=== PATIENT | female | born 1980 | race African-American/Black ===

== ENCOUNTER 2017-07-13 08:05 | Emergency (ER) | payer MEDICAID, OTHER ==
[~2017-07-13 08:05] MED LIST: PENI500T PO; TRAM50TA PO
--- NOTE | 2017-07-13 14:49 | RADRPT ---
EXAM DATE/TIME: 07/13/2017 08:55 [place] COMPARISON: No previous studies available for comparison. INDICATIONS : Fall. Left ankle pain. MEDICAL HISTORY : None. SURGICAL HISTORY : None. ENCOUNTER: Initial ACUITY: 1 day PAIN SCORE: 7/10 LOCATION: Left lateral FINDINGS: Two view exam was performed of the left ankle. The bony structures are in normal alignment. No evid ence of fracture, dislocation, or soft tissue swelling. No radiopaque foreign bodies are seen. Bony mineralization is normal. CONCLUSION: No acute fracture. Bryce Lehman MD on July 13, 2017 at 9:03 Board Certified Radiologist. This report was verified electronically.
--- NOTE | 2017-07-13 17:56 | EP ---
cc: MIRTA PATRICK MD The patient is an 11 week female patient presenting to the emergency room after a slip and fall accident where she landed on her hands and knees and is complaining of lower back discomfort and left ankle pain which she currently measures at a 5/10. It hurts with ambulating. She denies any incontinence, fevers, head injury, loss of consciousness, or any other issues. PHYSICAL EXAMINATION: GENERAL: On physical exam, the patient is a well-appearing female who is in no significant distress. She is awake and oriented x3. HEAD, EYES, EARS, NOSE, THROAT: Normocephalic and atraumatic. NECK: The neck is supple. CHEST: She is clear to auscultation bilaterally with no wheezes, crackles or rhonchi. There is no tenderness on palpation of the chest wall. ABDOMEN: Nontender at palpation with no signs of significant trauma or organomegaly. EXTREMITIES: There is no tenderness to palpation except for mild tenderness around the left ankle area which is generalized with no bony tenderness. NEUROLOGICAL EXAMINATION: The patient is awake, alert and oriented x3. ASSESSMENT AND PLAN: She appears to have an underlying ankle injury/back strain--rule out fractures of the ankle. The back exam is fairly unremarkable and I do not suspect an acute bony injury. Her ankle was x-rayed and showed no signs of fracture. At this point, it appears that she may have some underlying sprain and was given PADMINI wrap and crutches. The patient was asked to stay off the ankle for the next week and to ice and elevate the ankle when sitting down or lying down. She should follow up with her primary care physician should any of her pain become worse or if she has any symptoms. Tylenol and Flexeril as needed for pain. Mirta KENNY/JUAN /12:14 PM /5:46 PM
[2017-08-14] MEDS ORDERED: PREN1CAP7 PO (16:16)
== END 2017-07-13 09:30 | disposition home or self-care (01) ==
LOC: PHED 08:26
DX: M25.572 Pain in left ankle and joints of left foot (principal); M54.5 Low back pain; O26.891 Other specified pregnancy related conditions, first trimester; W01.0XXA Fall on same level from slipping, tripping and stumbling without subsequent striking against object, initial encounter; Z3A.11 11 weeks gestation of pregnancy
CPT/HCPCS: 73600; 99283

== ENCOUNTER → 2017-08-25 | Outpatient (CLI) | payer OTHER ==
[~2017-08-25] MED LIST changes: -PENI500T PO; +PREN1CAP7 PO; -TRAM50TA PO
== END ==
LOC: HPND 11:02
PROVIDERS: ATTEND Obstetrics & Gynecology
DX: O09.522 Supervision of elderly multigravida, second trimester (principal)
CPT/HCPCS: 76805

== ENCOUNTER → 2017-09-24 | Outpatient (CLI) | payer OTHER ==
[~2017-09-24] MED LIST changes: +CITA10TA4 PO; +CITA20TA4 PO
== END ==
LOC: HPND 08:21
PROVIDERS: ATTEND Obstetrics & Gynecology
DX: O09.522 Supervision of elderly multigravida, second trimester (principal)
CPT/HCPCS: 76811; 76817

== ENCOUNTER 2017-09-25 10:15 | Inpatient (IN) | payer OTHER ==
[2017-09-25] VITALS (25 sets, daily range): BP systolic 115–118; BP diastolic 59–67; PULSE 74–96; RESP 18; TEMP 98; O2SAT 99
[~2017-09-25] VITALS: Ht 170.2 cm; Wt 71.1 kg
[2017-09-25] MEDS ORDERED: ceFAZolin 2 GM PREMIX 50 ML ONE ×2 (10:55)
[2017-09-25] MEDS: LACTATED RINGER'S 1000 ML IV PRN ×4 (11:00→19:50)
[2017-09-25] MEDS ORDERED: METOPROLOL TARTRATE 25 MG TAB PO PRN ×2 (11:30)
[2017-09-25] MEDS ORDERED: ceFAZolin 2 GM PREMIX 50 ML IV SCH ×2 (11:30)
[2017-09-25] MEDS ORDERED: SODIUM CHLORID 0.9% 500 ML IV PRN ×2 (11:30)
[2017-09-25] MEDS ORDERED: INSULIN HUMAN REGULAR 1,000 UNITS/10 ML VIAL SQ PRN ×2 (11:30)
[2017-09-25] MEDS ORDERED: POVIDONE IODINE 5% (ANTISEPSIS KIT) 4 APPLICATIONS EACH NARE PRN ×2 (11:30)
[2017-09-25] MEDS ORDERED: CHLORHEXIDINE GLUCONATE 2 % 1 PACK (2 CLOTHS) TOPICAL PRN ×2 (11:30)
[2017-09-25] MEDS ORDERED: SUCCINYLCHOLINE CHLORIDE 100 MG/5 ML SYRINGE IV PUSH ONE ×2 (12:00)
[2017-09-25] MEDS ORDERED: LIDOCAINE HCL 1% PF 5 ML AMPULE OTHER ONE ×2 (12:00)
[2017-09-25] MEDS ORDERED: PROPOFOL 200 MG/20 ML AMP IV ONE ×2 (12:00)
--- NOTE | 2017-09-25 12:00 | MH ---
cc: ERICKA RENTERIA MD DATE OF ADMISSION: 09/25/2017 REASON FOR ADMISSION Cervical cerclage. HISTORY OF PRESENT ILLNESS This patient is well-known to our practice. She was recently seen by Maternal Medicine at which time she was diagnosed with cervical incompetence. She is approximately 20 weeks gestation. I discussed with Maternal Medicine the risks and benefits of a rescue cerclage at this point. Because the patient has some cervix left I advised the patient that I will go ahead with a rescue cerclage. The benefits of cerclage were discussed at length in a patient who is 21 weeks. The success rate is not great although the benefits would be potentially life-saving for the . The patient is a 3, para 2, -[place] who originally saw us at approximately ___ weeks gestation. It should be noted that the patient has a severe anxiety disorder and because of that she refused a pelvic exam until today when I examined her in the office and found the cervix at approximately 50-75% effacement and 1 cm dilated. PAST MEDICAL HISTORY The patient along with her severe anxiety disorder has in the past refused treatment. When I saw her in the office today I advised her to begin Citalopram therapy. PAST SURGICAL HISTORY The patient had two previous sections. The first section was for distress at 36 weeks. The second was a repeat. ALLERGIES 1. ACETAMINOPHEN. 2. CODEINE. 3. HYDROCODONE. 4. OXYCODONE. REVIEW OF SYSTEMS Essentially noncontributory. PHYSICAL EXAMINATION GENERAL: The patient was seen well-developed, however, highly anxious, although in no acute distress. VITAL SIGNS: Blood pressure was 132/82, pulse of 70, respirations 12. HEENT: Negative. CHEST: Clear to auscultation. CARDIOVASCULAR: Regular rate. ABDOMEN: Fundal height of 21 weeks. PELVIC: 1 cm dilated cervix, 50-75% effaced. Vertex was low at -1 to 0 station. EXTREMITIES: No cyanosis, clubbing or edema. NEUROPSYCHIATRIC: The patient is oriented x3 and showed no gross neurocranial deficit. IMPRESSION Impression on admission was cervical incompetence. PLAN The plan is to proceed with a rescue cerclage. MD AKIRA Vo/SANIA /1:43 PM /11:57 AM
[2017-09-25] MEDS ORDERED: DO NOT ADM ANY ANTICOAGULANT DRUGS PRN ×2 (12:57)
[2017-09-25] MEDS ORDERED: ONDANSETRON HCL 4 MG/2 ML VIAL IV PUSH PRN ×4 (13:00→15:15)
[2017-09-25] MEDS ORDERED: *morphine SULFATE 8 MG/ML PERIprocedure ONLY ONE ×2 (13:02)
[2017-09-25] MEDS ORDERED: *ONDANSETRON 4 MG VIAL PERIprocedural Use ONLY ONE ×2 (13:27)
[2017-09-25] MEDS ORDERED: ONDANSETRON ODT 4 MG TAB PO PRN ×2 (15:15)
[2017-09-25] MEDS ORDERED: ZOLPIDEM TARTRATE 5 MG TAB PO PRN ×2 (15:15)
[2017-09-25] MEDS ORDERED: SODIUM CHLORIDE 0.9% FLUSH 10 ML FLUSH IV FLUSH PRN ×2 (15:15)
--- NOTE | 2017-09-25 15:20 | HHI.HP ---
HPI Travel History International Travel<30 Days: No Contact w/Intl Traveler<30Days: No Known Affected Area: No History of Present Illness HPI 37 yr old at 21 weeks. She is a patient of [facility]. She was admitted to antepartum floor for observation s/p cerclage by Dr. Patrick for cervical insufficiency. She is doing well post-op. She has hx of anxiety, currently taking citalopram. She has hx of labor x1 and C-sections x2. She endorses nausea, but no vomiting. She endorses good movement. She denies pain, vaginal bleeding, LOF, CP and SOB. History Past Medical History Narrative Medical Anxiety on citalopram Obstetric History Obstetric History x2 x1 1st , delivered at 36 weeks, reports being on a morphine drip for anxiety, for decels 2nd , delivered at 40 weeks, scheduled Past Surgical History Narrative Surgical C-sections x2 Family History Narrative Family History DM Social History Alcohol Use: No Tobacco Use: Yes (1-2 cigarrettes / day ) Substance Abuse: No Allergies-Medications (Allergen,Severity, Reaction): Coded Allergies: acetaminophen (Unverified Allergy, Severe, DIZZY/nausea, 09/25/17) codeine (Unverified Allergy, Severe, DIZZY,VOMITING, 09/25/17) hydrocodone (Unverified Allergy, Severe, DIZZY/VOMITING, 09/25/17) oxycodone (Unverified Allergy, Severe, DIZZY/VOMITING, 09/25/17) Home Meds Active Scripts Citalopram (Citalopram) 20 Mg Tab, 20 MG PO DAILY for Control Depression, #30 TAB 3 Refills Prov:Fredrick Patrick MD 09/24/17 Citalopram (Citalopram) 10 Mg Tab, 10 MG PO DAILY for Control Depression, #7 TAB 0 Refills Prov:Fredrick Patrick MD 09/24/17 W/O Vit A W/ Fe Fumar (Citranatal [place]) 27-1-260 Mg Cap, 1 CAP PO DAILY for Nutritional Supplement, #30 CAP 3 Refills Prov:Jazmin Delgadillo CNMP 08/14/17 Review of Systems Except as stated in HPI: all other systems reviewed are Neg Physical Exam Vital Signs Date Time Temp Pulse Resp B/P (MAP) Pulse Ox O2 Delivery O2 Flow Rate FiO2 09/25/17 13:45 82 16 114/60 (78) 99 Room Air 09/25/17 13:15 87 16 120/71 (87) 99 Room Air 09/25/17 13:00 98 16 122/75 (91) 100 Nasal Cannula 2 09/25/17 12:56 97.8 99 16 121/69 (86) 100 Nasal Cannula 3 09/25/17 10:59 98.5 87 16 120/75 (90) 100 Narrative GENERAL: Well-nourished, well-developed patient. SKIN: Warm and dry. HEAD: Normocephalic and atraumatic. EYES: No scleral icterus. No injection or drainage. ENT: No nasal drainage noted. Mucous membranes pink. Airway patent. NECK: Supple, trachea midline. No JVD. CARDIOVASCULAR: Regular rate and rhythm without murmurs, gallops, or rubs. RESPIRATORY: Breath sounds equal bilaterally. No accessory muscle use. ABDOMEN/GI: Abdomen soft, non-tender, bowel sounds present, no rebound, no guarding EXTREMITIES: No cyanosis or edema. BACK: Nontender without obvious deformity NEUROLOGICAL: Awake and alert. Motor and sensory grossly within normal limits. Caprini VTE Risk Assessment Caprini VTE Risk Assessment: No/Low Risk (score <= 1) Caprini Risk Assessment Model Point Value = 1 Point Value = 2 Point Value = 3 Point Value = 5 Age 41-60 Minor surgery BMI > 25 kg/m2 Swollen legs Varicose veins or History of unexplained or recurrent spontaneous Oral contraceptives or hormone replacement Sepsis (< 1 month) Serious lung disease, including pneumonia (< 1 month) Abnormal pulmonary function Acute myocardial infarction Congestive heart failure (< 1 month) History of inflammatory bowel disease Medical patient at bed rest Age 61-74 Arthroscopic surgery Major open surgery (> 45 min) Laparoscopic surgery (> 45 min) Malignancy Confined to bed (> 72 hours) Immobilizing plaster cast Central venous access Age >= 75 History of VTE Family history of VTE Factor V Leiden Prothrombin [id number] Lupus anticoagulant Anticardiolipin antibodies Elevated serum homocysteine Heparin-induced thrombocytopenia Other congenital or acquired thrombophilia Stroke (< 1 month) Elective arthroplasty Hip, pelvis, or leg fracture Acute spinal cord injury (< 1 month) Prophylaxis Regimen Total Risk Factor Score Risk Level Prophylaxis Regimen 0-1 Low Early ambulation 2 Moderate Order ONE of the following: *Sequential Compression Device (SCD) *Heparin 5000 units SQ BID 3-4 Higher Order ONE of the following medications: *Heparin 5000 units SQ TID *Enoxaparin/Lovenox 40 mg SQ daily (WT < 150 kg, CrCl > 30 mL/min) *Enoxaparin/Lovenox 30 mg SQ daily (WT < 150 kg, CrCl > 10-29 mL/min) *Enoxaparin/Lovenox 30 mg SQ BID (WT < 150 kg, CrCl > 30 mL/min) AND/OR *Sequential Compression Device (SCD) 5 or more Highest Order ONE of the following medications: *Heparin 5000 units SQ TID (Preferred with Epidurals) *Enoxaparin/Lovenox 40 mg SQ daily (WT < 150 kg, CrCl > 30 mL/min) *Enoxaparin/Lovenox 30 mg SQ daily (WT < 150 kg, CrCl > 10-29 mL/min) *Enoxaparin/Lovenox 30 mg SQ BID (WT < 150 kg, CrCl > 30 mL/min) AND *Sequential Compression Device (SCD) Data Data Vital Signs Reviewed: Yes Orders Orders Cefazolin 2 Gm Premix (Ancef 2 Gm Premix (09/25/17 10:55) Lactated Ringer's 1000 Ml Inj (Lr 1000 M (09/25/17 11:30) Sodium Chlorid 0.9% 500 Ml Inj (Ns 500 M (09/25/17 11:30) Metoprolol Tartrate (Lopressor) (09/25/17 11:30) Povidone Iod 5% Antisepsis Kit (Betadine (09/25/17 11:30) Chlorhexidine 2% Cloth (Chlorhexidine 2% (09/25/17 11:30) Insulin Human Regular Inj (Novolin R Inj (09/25/17 11:30) Cefazolin 2 Gm Premix (Ancef 2 Gm Premix (09/25/17 11:30) Vital Signs (Adult) Q15MX4,Q30MX2 (09/25/17 12:47) IV (09/25/17 12:47) Diet Regular Basic (09/25/17 Lunch) ^ Discharge Plan (09/25/17 12:47) Ondansetron Inj (Zofran Inj) (09/25/17 13:00) *Morphine Inj (*Morphine Inj Periprocedu (09/25/17 13:02) *Ondansetron Inj (*Zofran Inj Periproced (09/25/17 13:27) Misc Nursing Information (09/25/17 12:57) Sds Pre Op Care (09/25/17 ) Admit To Inpatient (09/25/17 ) Diet Regular Basic (09/25/17 Dinner) Vital Signs (Adult) JAIRON.I2C-ZMUAY AWAKE (09/25/17 15:13) Heart JAIRON.QSHIFT (09/25/17 15:13) ^ Monitor (09/25/17 15:13) Activity Bed Rest With Brp (09/25/17 15:13) Wbtfsigg-Lkn-Zqiez-Iron Prenat (Stuartna (09/26/17 09:00) Docusate Sodium (Colace) (09/26/17 09:00) Sodium Chloride 0.9% Flush (Ns Flush) (09/25/17 21:00) Sodium Chloride 0.9% Flush (Ns Flush) (09/25/17 15:15) Zolpidem (Ambien) (09/25/17 15:15) Ondansetron Odt (Zofran Odt) (09/25/17 15:15) Ondansetron Inj (Zofran Inj) (09/25/17 15:15) Ob/Psych Drug Screen, Urine (09/25/17 15:13) Ferrous Sulfate (Ferrous Sulfate) (09/25/17 21:00) Assessment/Plan Problem List: (1) Cervical insufficiency in , antepartum ICD Codes: O34.30 - Maternal care for cervical incompetence, unspecified trimester (2) Multigravida of advanced maternal age ICD Codes: O09.529 - Supervision of elderly multigravida, unspecified trimester Assessment and Plan 37 yr old at 21/1 weeks for cervical insufficiency s/p rescued cervical cerclage -Admit to L& D for monitoring and observation -Advanced Maternal Age -Hx of x2 -Hx of x1 Sharon Briones MD R1 Sep 25, 2017 15:20
--- NOTE | 2017-09-25 15:32 | MP ---
cc: SANIA PIERCE MD DATE OF SURGERY: 09/25/2017 PREOPERATIVE DIAGNOSIS: Cervical incompetence. POSTOPERATIVE DIAGNOSIS Cervical incompetence. OPERATION: Cervical cerclage using a 191 suture. SURGEON: Sania Pierce MD. ANESTHESIA: General. ESTIMATED BLOOD LOSS: Minimal. FINDINGS: The findings were consistent with a severe effaced cervix, there are membranes which could be seen emanating through the cervical os. PROCEDURE The patient was prepped and draped in the dorsal recumbent position. Weighted speculum was placed in the posterior vaginal wall. The anterior lip cervix grasped with single-toothed tenaculum, using One nylon suture, a row of sutures were placed around cervix, starting at the 12 o'clock position and end up in the 12 o'clock position and the suture was tied. A second row of sutures were placed approximately 1/2 cm behind the first, also using one nylon suture material, starting at the 12 o'clock position and ending up again at 12 o'clock position. This suture was also tied and secured. Using these two rows of sutures the cervix was approximated around the membranes. After hemostasis was noted the tenaculum and speculum were removed and the patient returned to the Recovery Room in stable condition. Because of the extent of the effacement of the cervix and the membranes which could be visualized through the cervix this gave a very poor prognosis for the success of this surgical procedure. MD AKIRA Vo/maggie /12:51 PM /3:27 PM
[2017-09-25] MEDS ORDERED: CITRIC ACID-SODIUM CITRATE LIQ 30 ML UDC PO ONE ×2 (20:15)
[2017-09-25] MEDS: ALUMINUM/MAGNESIUM/SIMETH 30 ML CUP PO PRN ×2 (20:58)
[2017-09-25] MEDS: FERROUS SULFATE 325 MG (65 MG ELEMENTAL IRON) TAB PO SCH ×2 (21:00)
[2017-09-25] MEDS: SODIUM CHLORIDE 0.9% FLUSH 10 ML FLUSH IV FLUSH SCH ×2 (21:00)
[2017-09-26] MEDS: LACTATED RINGER'S 1000 ML IV PRN ×2 (03:03)
[2017-09-26 08:11] VITALS: BP 105/63; PULSE 81; RESP 18; TEMP 98.9
[2017-09-26] MEDS: SODIUM CHLORIDE 0.9% FLUSH 10 ML FLUSH IV FLUSH SCH ×4 (08:48→21:00)
[2017-09-26] MEDS: FERROUS SULFATE 325 MG (65 MG ELEMENTAL IRON) TAB PO SCH ×2 (08:48)
[2017-09-26] MEDS: DOCUSATE SODIUM 100 MG CAP PO SCH ×2 (08:48)
[2017-09-26] MEDS: MULTIVIT/MIN/PREN/FOL AC/IRON PRENATAL TAB PO SCH ×2 (08:48)
[2017-09-26 12:11] VITALS: BP 118/67; PULSE 87; TEMP 98
--- NOTE | 2017-09-26 13:39 | PD.OB.ANTE ---
Subjective Diagnosis: (1) Cervical insufficiency in , antepartum Diagnosis: Principal (2) Multigravida of advanced maternal age Diagnosis: Principal Interval History Patient is doing well this AM. No complaints. She denies LOF, vaginal bleeding, and contractions. Objective Vital Signs Vital Signs Date Time Temp Pulse Resp B/P (MAP) Pulse Ox O2 Delivery O2 Flow Rate FiO2 09/26/17 12:11 87 118/67 (84) 09/26/17 12:11 98.0 09/26/17 08:11 98.9 09/26/17 08:11 81 18 105/63 (77) 09/25/17 19:52 98.0 09/25/17 19:32 78 118/67 (84) 09/25/17 19:30 18 09/25/17 16:18 76 115/59 (77) 09/25/17 16:05 85 09/25/17 16:00 77 09/25/17 15:55 80 09/25/17 15:50 79 09/25/17 15:45 82 09/25/17 15:40 84 09/25/17 15:35 96 09/25/17 15:30 81 09/25/17 15:25 74 09/25/17 15:20 81 09/25/17 15:15 82 09/25/17 15:10 77 09/25/17 15:05 76 09/25/17 15:00 78 09/25/17 14:55 76 09/25/17 14:50 76 09/25/17 14:45 75 09/25/17 14:40 75 09/25/17 14:35 77 09/25/17 14:30 77 09/25/17 13:45 82 16 114/60 (78) 99 Room Air Physical Exam GENERAL: Well-nourished, well-developed patient. CARDIOVASCULAR: Regular rate and rhythm without murmurs, gallops, or rubs. RESPIRATORY: Breath sounds equal bilaterally. No accessory muscle use. ABDOMEN/GI: Abdomen soft, non-tender. EXTREMITIES: No cyanosis or edema, non-tender, without signs of DVT. Assessment and Plan Problem List: (1) Cervical insufficiency in , antepartum ICD Codes: O34.30 - Maternal care for cervical incompetence, unspecified trimester (2) Multigravida of advanced maternal age ICD Codes: O09.529 - Supervision of elderly multigravida, unspecified trimester Assessment and Plan 37 yr old at 21/1 weeks for cervical insufficiency s/p rescued cervical cerclage 1. Advanced Maternal Age 2. Hx of x2 3. Hx of x1 4. 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 No lifting. 6. F/U with TRAFFIC SURVEY TECHNICIAN for routine OB care Sharon Briones MD R1 Sep 26, 2017 13:39
[2017-09-26 21:04] VITALS: BP 111/60; PULSE 89; RESP 18; TEMP 98
[2017-09-27] MEDS: FERROUS SULFATE 325 MG (65 MG ELEMENTAL IRON) TAB PO SCH ×4 (02:18→09:00)
[2017-09-27] MEDS: ALUMINUM/MAGNESIUM/SIMETH 30 ML CUP PO PRN ×2 (02:18)
[2017-09-27 02:24] VITALS: BP 112/71; PULSE 83
[2017-09-27 02:27] VITALS: RESP 18; TEMP 97.8
[2017-09-27 08:05] VITALS: BP 112/66; PULSE 87; TEMP 98.2
[2017-09-27 08:10] VITALS: RESP 16
[2017-09-27] MEDS: SODIUM CHLORIDE 0.9% FLUSH 10 ML FLUSH IV FLUSH SCH ×2 (09:00)
--- NOTE | 2017-09-27 09:28 | PD.OB.ANTE ---
Subjective Diagnosis: (1) Cervical insufficiency in , antepartum Diagnosis: Principal (2) Multigravida of advanced maternal age Diagnosis: Principal Antepartum ROS: Reports: movement normal, Denies: New complaints, Loss of fluid, Vaginal bleeding (light spotting), Contractions Objective Vital Signs Vital Signs Date Time Temp Pulse Resp B/P (MAP) Pulse Ox O2 Delivery O2 Flow Rate FiO2 09/27/17 08:10 16 09/27/17 08:05 87 112/66 (81) 09/27/17 08:05 98.2 09/27/17 02:27 97.8 18 09/27/17 02:24 83 112/71 (85) 09/26/17 21:04 89 111/60 (77) 09/26/17 21:04 98.0 18 09/26/17 12:11 87 118/67 (84) 09/26/17 12:11 98.0 Physical Exam GENERAL: Well-nourished, well-developed patient. CARDIOVASCULAR: Regular rate and rhythm without murmurs, gallops, or rubs. RESPIRATORY: Breath sounds equal bilaterally. No accessory muscle use. ABDOMEN/GI: Abdomen soft, non-tender. FHT's: 140s EXTREMITIES: No cyanosis or edema, non-tender, without signs of DVT. Assessment and Plan Problem List: (1) Cervical insufficiency in , antepartum ICD Codes: O34.30 - Maternal care for cervical incompetence, unspecified trimester (2) Multigravida of advanced maternal age ICD Codes: O09.529 - Supervision of elderly multigravida, unspecified trimester Assessment and Plan 37 yr old at 21/1 weeks for cervical insufficiency s/p rescue cervical cerclage 1. Advanced Maternal Age 2. Hx of x2 3. Hx of x1 4. 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 No lifting. 6. F/U with PRESIDENT AND CEO for routine OB care Dispo: Home today, outpatient followup with [facility] Justin Dong MD R2 Sep 27, 2017 09:28
--- NOTE | 2017-09-27 09:28 | PD.OB.ANTE ---
Subjective Diagnosis: (1) Cervical insufficiency in , antepartum Diagnosis: Principal (2) Multigravida of advanced maternal age Diagnosis: Principal Antepartum ROS: Reports: movement normal, Denies: New complaints, Loss of fluid, Vaginal bleeding (light spotting), Contractions Objective Vital Signs Vital Signs Date Time Temp Pulse Resp B/P (MAP) Pulse Ox O2 Delivery O2 Flow Rate FiO2 09/27/17 08:10 16 09/27/17 08:05 87 112/66 (81) 09/27/17 08:05 98.2 09/27/17 02:27 97.8 18 09/27/17 02:24 83 112/71 (85) 09/26/17 21:04 89 111/60 (77) 09/26/17 21:04 98.0 18 09/26/17 12:11 87 118/67 (84) 09/26/17 12:11 98.0 Physical Exam GENERAL: Well-nourished, well-developed patient. CARDIOVASCULAR: Regular rate and rhythm without murmurs, gallops, or rubs. RESPIRATORY: Breath sounds equal bilaterally. No accessory muscle use. ABDOMEN/GI: Abdomen soft, non-tender. FHT's: 140s EXTREMITIES: No cyanosis or edema, non-tender, without signs of DVT. Assessment and Plan Problem List: (1) Cervical insufficiency in , antepartum ICD Codes: O34.30 - Maternal care for cervical incompetence, unspecified trimester (2) Multigravida of advanced maternal age ICD Codes: O09.529 - Supervision of elderly multigravida, unspecified trimester Assessment and Plan 37 yr old at 21/1 weeks for cervical insufficiency s/p rescue cervical cerclage 1. Advanced Maternal Age 2. Hx of x2 3. Hx of x1 4. 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 No lifting. 6. F/U with CONGRESSIONAL AIDE for routine OB care Dispo: Home today, outpatient followup with [facility] Justin Dong MD R2 Sep 27, 2017 09:28
--- NOTE | 2017-09-27 09:28 | PD.OB.ANTE ---
Subjective Diagnosis: (1) Cervical insufficiency in , antepartum Diagnosis: Principal (2) Multigravida of advanced maternal age Diagnosis: Principal Antepartum ROS: Reports: movement normal, Denies: New complaints, Loss of fluid, Vaginal bleeding (light spotting), Contractions Objective Vital Signs Vital Signs Date Time Temp Pulse Resp B/P (MAP) Pulse Ox O2 Delivery O2 Flow Rate FiO2 09/27/17 08:10 16 09/27/17 08:05 87 112/66 (81) 09/27/17 08:05 98.2 09/27/17 02:27 97.8 18 09/27/17 02:24 83 112/71 (85) 09/26/17 21:04 89 111/60 (77) 09/26/17 21:04 98.0 18 09/26/17 12:11 87 118/67 (84) 09/26/17 12:11 98.0 Physical Exam GENERAL: Well-nourished, well-developed patient. CARDIOVASCULAR: Regular rate and rhythm without murmurs, gallops, or rubs. RESPIRATORY: Breath sounds equal bilaterally. No accessory muscle use. ABDOMEN/GI: Abdomen soft, non-tender. FHT's: 140s EXTREMITIES: No cyanosis or edema, non-tender, without signs of DVT. Assessment and Plan Problem List: (1) Cervical insufficiency in , antepartum ICD Codes: O34.30 - Maternal care for cervical incompetence, unspecified trimester (2) Multigravida of advanced maternal age ICD Codes: O09.529 - Supervision of elderly multigravida, unspecified trimester Assessment and Plan 37 yr old at 21/1 weeks for cervical insufficiency s/p rescue cervical cerclage 1. Advanced Maternal Age 2. Hx of x2 3. Hx of x1 4. Clinically stable with no signs of labor, normal FHTs 5. 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 No lifting. 6. F/U with AIR CONTROL ELECTRONICS OPERATOR for routine OB care Dispo: Home today, outpatient followup with [facility] Justin Dong MD R2 Sep 27, 2017 09:28
[2017-09-27] MEDS: MULTIVIT/MIN/PREN/FOL AC/IRON PRENATAL TAB PO SCH ×2 (09:33)
[2017-09-27] MEDS: DOCUSATE SODIUM 100 MG CAP PO SCH ×2 (09:33)
--- NOTE | 2017-09-27 09:33 | HHI.DCPOC ---
Discharge Care Plan Diagnosis: (1) Cervical insufficiency in , antepartum (2) Multigravida of advanced maternal age Report Symptoms to Your Doctor -Temperature above 100.5 degrees -Redness, of incision or excessive or foul smelling drainage -Unusual pain or calf pain -Increased vaginal bleeding -Painful or difficulty urinating -Feelings of extreme sadness or anxiety after 2 weeks Goals to Promote Your Health * To prevent worsening of your condition and complications * To maintain your health at the optimal level Directions to Meet Your Goals Bed rest when possible, avoid strenuous activity. May return to work with light duty Return to OB ER if there are any concerns of bleeding, contractions, broken water, or decreased movement Take your medications as prescribed Follow your dietary instruction Follow activity as directed Drink fluids for hydration Keep your appointments as scheduled Take your immunizations and boosters as scheduled If your symptoms worsen call your PCP, if no PCP go to Urgent Care Center or Emergency Room Smoking is Dangerous to Your Health. Avoid second hand smoke Call the 24-hour crisis hotline for domestic abuse at Justin Dong MD R2 Sep 27, 2017 09:33
== END 2017-09-27 11:21 | disposition home or self-care (01) | DRG 782 ==
LOC: HSDC 10:15 → H2EA 14:13 → HSDC 14:52 → H2EA 15:23
PROVIDERS: ADMIT Obstetrics & Gynecology; ATTEND Obstetrics & Gynecology
PROC: 0UVC0ZZ Restriction of Cervix, Open Approach (ICD-10-PCS; principal; 2017-09-25 12:27)
DX: O34.32 Maternal care for cervical incompetence, second trimester (principal); F17.210 Nicotine dependence, cigarettes, uncomplicated; O09.522 Supervision of elderly multigravida, second trimester; Z3A.20 20 weeks gestation of pregnancy; Z72.0 Tobacco use; O99.332 Smoking (tobacco) complicating pregnancy, second trimester
CPT/HCPCS: 76811; 76817; J0330; J0690; J2270; J2405; J7120

== ENCOUNTER 2017-10-06 09:17 | Inpatient (IN) | payer OTHER ==
[~2017-10-06] VITALS: Ht 170.2 cm; Wt 73.0 kg
[2017-10-06 09:56] VITALS: BP 130/64; PULSE 83
--- NOTE | 2017-10-06 10:15 | PD ---
HPI Chief Complaint PPROM Date Seen: Oct 06, 2017 Time Seen: 09:30 Travel History International Travel<30 Days: No Contact w/Intl Traveler<30Days: No Known Affected Area: No History of Present Illness HPI Patient is a 37-year-old at 23 weeks and 0 days who presents with likely PPROM. She presented after noticing a gush of clear fluid. [facility] and he placed a cerclage for 100% effacement last week. She has a history of 2 prior C-sections. She reports that she is feeling some pelvic pain and pressure. She denies any vaginal bleeding. Patient reports movement. She is extremely anxious. She says she wants to be knocked out and have this baby taken out of her. She refuses steroids or antibiotics. Patient took her first dose of citalopram/Celexa 10 mg last night. Weeks Gestation: 23 Para: 2 : 4 History Past Medical History Medical History: Denies Significant Hx Obstetric History Obstetric History Advanced maternal age this . Patient has a history of 2 prior C-sections. Past Surgical History Narrative Surgical 2 prior C-sections Her first delivery was in 2005. She delivered , 36 weeks and 1 day, labor with delivery same day, for distress, 6 lbs. 1 oz. female baby in good health. Her second delivery was in 2006, term , uncomplicated, delivery of 6 lbs. 8 oz. male baby in good health. In 2015, she had a spontaneous miscarriage without D&C. Family History Family History: Negative Social History Narrative Social History Patient lives at home with her and 2 children, a tendon 11-year-old. Alcohol Use: No Tobacco Use: Yes (patient recently quit after smoking 1 cigarette per day) Substance Abuse: Yes (some marijuana use in the beginning of this ) Allergies-Medications (Allergen,Severity, Reaction): Coded Allergies: acetaminophen (Unverified Allergy, Severe, DIZZY/nausea, 09/25/17) codeine (Unverified Allergy, Severe, DIZZY,VOMITING, 09/25/17) hydrocodone (Unverified Allergy, Severe, DIZZY/VOMITING, 09/25/17) oxycodone (Unverified Allergy, Severe, DIZZY/VOMITING, 09/25/17) Home Meds Active Scripts Citalopram (Citalopram) 20 Mg Tab, 20 MG PO DAILY for Control Depression, #30 TAB 3 Refills Prov:Fredrick Patrick MD 09/24/17 Citalopram (Citalopram) 10 Mg Tab, 10 MG PO DAILY for Control Depression, #7 TAB 0 Refills Prov:Fredrick Patrick MD 09/24/17 W/O Vit A W/ Fe Fumar (Citranatal [place]) 27-1-260 Mg Cap, 1 CAP PO DAILY for Nutritional Supplement, #30 CAP 3 Refills Prov:ElieJazmin HenryMike SHETTY ACTING SECTION CHIEF 08/14/17 Review of Systems General / Constitutional: No: Fever, Chills Eyes: No: Visual changes HENT: No: Headaches Cardiovascular: No: Chest Pain or Discomfort, Edema Respiratory: No: Short of Breath Gastrointestinal: No: Nausea, Vomiting Genitourinary: No: Dysuria Physical Exam 130/64, 83, 18, 98.2, pain 0 out of 10 Narrative GENERAL: Well-nourished, well-developed patient. SKIN: Warm and dry. HEAD: Normocephalic and atraumatic. EYES: No scleral icterus. No injection or drainage. ENT: No nasal drainage noted. Mucous membranes pink. Airway patent. NECK: Supple, trachea midline. No JVD. CARDIOVASCULAR: Regular rate and rhythm without murmurs, gallops, or rubs. RESPIRATORY: Breath sounds equal bilaterally. No accessory muscle use. ABDOMEN/GI: Abdomen soft, non-tender, bowel sounds present, no rebound, no guarding Gravid to 23 weeks size GENITOURINARY: Patient refused to let us examine her External Genitalia: intact and normal in appearance; a fluid sample was collected from the perineum, which was Amnisure positive. FHT's: Patient refused to let us examine her EXTREMITIES: No cyanosis or edema. BACK: Nontender without obvious deformity. No CVA tenderness. NEUROLOGICAL: Awake and alert. Motor and sensory grossly within normal limits. Five out of 5 muscle strength in all muscle groups. Normal speech. Data Data Vital Signs Reviewed: Yes Orders Orders Vital Signs (Adult) .ON ADMISSION (10/06/17 10:12) ^ Labor Status (10/06/17 10:12) ^ Hydration (10/06/17 10:12) Consult Neonatology (10/06/17 ) MDM Plan Patient is a 37-year-old at 23 weeks and 0 days who presents with likely PPROM. She presented after noticing a gush of clear fluid. She was recently [facility] and he placed a cerclage for 100% effacement last week. She has a history of 2 prior C-sections. She reports that she is feeling some pelvic pain and pressure. She is extremely anxious. She says she wants to be knocked out and have this baby taken out of her. She refuses steroids or antibiotics. 1. PPROM -Admit to inpatient -Routine labs including blood type, hold clot, type and screen, CBC, UDS, UA -Neonatology consult to discuss risks, benefits, alternatives to watchful waiting; patient refuses steroids or antibiotics -Liquid diet -Monitor vital signs -Monitor labor status/tocometry 2. Anxiety -Ativan when necessary s/d/w Dr. Silverio d/w Marko Streeter MD R2 Oct 06, 2017 10:15
[2017-10-06] MEDS ORDERED: ONDANSETRON HCL 4 MG/2 ML VIAL IV PUSH PRN (10:30)
[2017-10-06] MEDS ORDERED: SODIUM CHLORIDE 0.9% FLUSH 10 ML FLUSH IV FLUSH PRN (10:30)
--- NOTE | 2017-10-06 10:36 | HHI.HP ---
History & Physical H&P HPI HPI Chief Complaint PPROM Date Seen: Oct 06, 2017 Time Seen: 09:30 Travel History International Travel<30 Days: No Contact w/Intl Traveler<30Days: No Known Affected Area: No History of Present Illness HPI Patient is a 37-year-old at 23 weeks and 0 days who presents with likely PPROM. She presented after noticing a gush of clear fluid. She was recently seen [facility] Dr[facility] and he placed a cerclage for 100% effacement last week. She has a history of 2 prior C-sections. She reports that she is feeling some pelvic pain and pressure. She denies any vaginal bleeding. Patient reports movement. She is extremely anxious. She says she wants to be knocked out and have this baby taken out of her. She refuses steroids or antibiotics. Patient took her first dose of citalopram/Celexa 10 mg last night. Weeks Gestation: 23 Para: 2 : 4 History (Limited) History Past Medical History Medical History: Denies Significant Hx Obstetric History Obstetric History Advanced maternal age this . Patient has a history of 2 prior C-sections. Past Surgical History Narrative Surgical 2 prior C-sections Her first delivery was in 2005. She delivered , 36 weeks and 1 day, labor with delivery same day, for distress, 6 lbs. 1 oz. female baby in good health. Her second delivery was in 2006, term , uncomplicated, delivery of 6 lbs. 8 oz. male baby in good health. In 2015, she had a spontaneous miscarriage without D&C. Family History Family History: Negative Social History Narrative Social History Patient lives at home with her and 2 children, a tendon 11-year-old. Alcohol Use: No Tobacco Use: Yes (patient recently quit after smoking 1 cigarette per day) Substance Abuse: Yes (some marijuana use in the beginning of this ) Allergies-Medications Allergies-Medications (Allergen,Severity, Reaction): Coded Allergies: acetaminophen (Unverified Allergy, Severe, DIZZY/nausea, 09/25/17) codeine (Unverified Allergy, Severe, DIZZY,VOMITING, 09/25/17) hydrocodone (Unverified Allergy, Severe, DIZZY/VOMITING, 09/25/17) oxycodone (Unverified Allergy, Severe, DIZZY/VOMITING, 09/25/17) Home Meds Active Scripts Citalopram (Citalopram) 20 Mg Tab, 20 MG PO DAILY for Control Depression, #30 TAB 3 Refills Prov:Fredrick Patrick MD 09/24/17 Citalopram (Citalopram) 10 Mg Tab, 10 MG PO DAILY for Control Depression, #7 TAB 0 Refills Prov:Fredrick Patrick MD 09/24/17 W/O Vit A W/ Fe Fumar (Citranatal [place]) 27-1-260 Mg Cap, 1 CAP PO DAILY for Nutritional Supplement, #30 CAP 3 Refills Prov:Jazmin Delgadillo CNM UPPER TIER 08/14/17 ROS Review of Systems General / Constitutional: No: Fever, Chills Eyes: No: Visual changes HENT: No: Headaches Cardiovascular: No: Chest Pain or Discomfort, Edema Respiratory: No: Short of Breath Gastrointestinal: No: Nausea, Vomiting Genitourinary: No: Dysuria Physical Exam Physical Exam 130/64, 83, 18, 98.2, pain 0 out of 10 Narrative GENERAL: Well-nourished, well-developed patient. SKIN: Warm and dry. HEAD: Normocephalic and atraumatic. EYES: No scleral icterus. No injection or drainage. ENT: No nasal drainage noted. Mucous membranes pink. Airway patent. NECK: Supple, trachea midline. No JVD. CARDIOVASCULAR: Regular rate and rhythm without murmurs, gallops, or rubs. RESPIRATORY: Breath sounds equal bilaterally. No accessory muscle use. ABDOMEN/GI: Abdomen soft, non-tender, bowel sounds present, no rebound, no guarding Gravid to 23 weeks size GENITOURINARY: Patient refused to let us examine her External Genitalia: intact and normal in appearance; a fluid sample was collected from the perineum, which was Amnisure positive. FHT's: Patient refused to let us examine her EXTREMITIES: No cyanosis or edema. BACK: Nontender without obvious deformity. No CVA tenderness. NEUROLOGICAL: Awake and alert. Motor and sensory grossly within normal limits. Five out of 5 muscle strength in all muscle groups. Normal speech. Data Data Data Vital Signs Reviewed: Yes Orders Orders Vital Signs (Adult) .ON ADMISSION (10/06/17 10:12) ^ Labor Status (10/06/17 10:12) ^ Hydration (10/06/17 10:12) Consult Neonatology (10/06/17 ) MDM MDM Plan Patient is a 37-year-old at 23 weeks and 0 days who presents with likely PPROM. She presented after noticing a gush of clear fluid. She was recently [facility] and he placed a cerclage for 100% effacement last week. She has a history of 2 prior C-sections. She reports that she is feeling some pelvic pain and pressure. She is extremely anxious. She says she wants to be knocked out and have this baby taken out of her. She refuses steroids or antibiotics. 1. PPROM -Admit to inpatient -Routine labs including blood type, hold clot, type and screen, CBC, UDS, UA -Neonatology consult to discuss risks, benefits, alternatives to watchful waiting; patient refuses steroids or antibiotics -Liquid diet -Monitor vital signs -Monitor labor status/tocometry 2. Anxiety -Ativan when necessary s/d/w Dr. Silverio d/w Marko Streeter MD R2 Oct 06, 2017 10:36
--- NOTE | 2017-10-06 12:27 | PD.CONS ---
History of Present Illness Service Neonatology Consult Requested By Dr Silvestre Reason for Consult Extreme Prematurity 23 weeks PPROM Primary Care Physician No Primary Care Physician Diagnoses: (1) Cervical insufficiency in , antepartum (2) Multigravida of advanced maternal age History of Present Illness Consult Maternal Hx: 37. y/o, , female at 23. weeks gestation with diagnosis of PPROM/ Extreme Prematurity 23 weeks.. Mother admitted [facility] 10/[facility]17 , secondary toPPROM ... Most recent Ultrasound on 09/24/17 confirms intrauterine . EDC of 02/02/18 Estimated weight is 435 grams. Maternal risk factors/complications: Depression/Anxiety/Previous section x 2 Maternal Labs: Blood type O+., Rubella immune, RPR non reactive.., Hepatitis B negative, HIV negative, GBS unknown., Other Maternal Medications: PNV, Iron, Citalopram Refused Betamethasone and antibiotics Social: Marital status: smarried Family Hx: Mother reports no genetic or inherited conditions. Reports other children are well. Substance Abuse: Denies Discussion: I met with mother and father at bedside with the Charge and OB nurse regarding threatened delivery of an extreme baby at 23 weeks gestation secondary to PPROM. This consultation included discussion of generalized care of the baby in the NICU, common problems, complications and survival and/or disability potential if delivered at this time. I provided information regarding the [employer] national statistics on overall survival at 23 weeks and 435grams at 75% and intact survival without significant neurodevelopment disability or visual disability at only 12%. Both parents have emphatically stated that they do not want any resuscitation at delivery, mom has refused steroids, as they do not want the baby to suffer or survive with severe neurodevelopment problems. I have counseled them that we will support their wishes as the baby is extremely premature at this present time, but that with appropriate care, if she remains intact at 25 weeks that decision will be out of their hands. Mom and dad both understand these risks but will prefer the baby be delivered soon with no resuscitation. I offered comfort care if this happens. Parents were also informed that this nicu is a level 2 unit and if the baby is viable will have to be transferred to [facility] for further care. At the end of the consultation we advised parents to sit down by themselves and evaluate all their options regarding the care of their baby. . Spent 40mins with Greater than 50% of the consultation time was spent with the patient. 10/06/17 Dr Bello Chu Date Past Family Social History Allergies: Coded Allergies: codeine (Unverified Allergy, Severe, DIZZY,VOMITING, 10/06/17) hydrocodone (Unverified Allergy, Severe, DIZZY/VOMITING, 10/06/17) oxycodone (Unverified Allergy, Severe, DIZZY/VOMITING, 10/06/17) Physical Exam Vital Signs Vital Signs Date Time Temp Pulse Resp B/P (MAP) Pulse Ox O2 Delivery O2 Flow Rate FiO2 10/06/17 09:56 83 130/64 (86) Physical Exam GENERAL: This is a well-nourished, well-developed patient, in no apparent distress. SKIN: No rashes, ecchymoses or lesions. Cool and dry. HEAD: Atraumatic. Normocephalic. No temporal or scalp tenderness. EYES: Pupils equal round and reactive. Extraocular motions intact. No scleral icterus. No injection or drainage. ENT: Nose without bleeding, purulent drainage or septal hematoma. Throat without erythema, tonsillar hypertrophy or exudate. Uvula midline. Airway patent. NECK: Trachea midline. No JVD or lymphadenopathy. Supple, nontender, no meningeal signs. CARDIOVASCULAR: Regular rate and rhythm without murmurs, gallops, or rubs. RESPIRATORY: Clear to auscultation. Breath sounds equal bilaterally. No wheezes , rales, or rhonchi. GASTROINTESTINAL: Abdomen soft, non-tender, nondistended. No hepato-splenomegaly , or palpable masses. No guarding. MUSCULOSKELETAL: Extremities without clubbing, cyanosis, or edema. No joint tenderness, effusion, or edema noted. No calf tenderness. Negative Homans sign bilaterally. NEUROLOGICAL: Awake and alert. Cranial nerves II through XII intact. Motor and sensory grossly within normal limits. Five out of 5 muscle strength in all muscle groups. Normal speech. Problem Qualifiers (1) Multigravida of advanced maternal age: Qualified Codes: O09.522 - Supervision of elderly multigravida, second trimester Bello Chu MD Oct 06, 2017 12:27
[2017-10-06 13:01] LABS: AUTOMATED NEUTROPHIL # 5.4 TH/MM3 (1.8-7.7); BASOPHIL % 0.5 % (0.0-2.0); EOSINOPHIL # 0.1 TH/MM3 (0-0.4); EOSINOPHIL % 1.2 % (0.0-4.0); HEMATOCRIT 30.4 % (35.0-46.0); HEMO FLAGS DIFF FINAL; LYMPH % 19.7 % (9.0-44.0); LYMPHOCYTE # 1.5 TH/MM3 (1.0-4.8); MEAN CELL VOLUME 83.9 FL (80.0-100.0); MEAN CORPUSCULAR HEMOGLOBIN 28.2 PG (27.0-34.0); MEAN CORPUSCULAR HGB CONC 33.6 % (32.0-36.0); MONO % 6.1 % (0.0-8.0); NEUT % 72.5 % (16.0-70.0); PLATELET COUNT 219 TH/MM3 (150-450); RED BLOOD COUNT 3.62 MIL/MM3 (4.00-5.30); RED CELL DISTRIBUTION WIDTH 14.8 % (11.6-17.2); WHITE BLOOD COUNT 7.5 TH/MM3 (4.0-11.0)
[2017-10-06 13:03] LABS: BACTERIA, URINE RARE /hpf; BLOOD, URINE SMALL (NEG); COMMENT (UR) CULT NOT INDICATED; CULTURE IF INDICATED CULT NOT INDICATED; GLUCOSE,URINE NEG (NEG); KETONE, URINE TRACE mg/dL (NEG); NITRITE,URINE NEG (NEG); PH, URINE 7.5 (5.0-8.5); SQUAMOUS EPITHELIAL CELL URINE 1 /hpf (0-5); URINE COLOR LIGHT-YELLOW (YELLW/STRAW)
[2017-10-06] MEDS: LORazepam 1 MG TAB PO PRN ×2 (13:49→21:44)
[2017-10-06] MEDS ORDERED: OXYTOCIN 30 UNITS-500ML PREMIX 500 ML ONE (14:30)
[2017-10-06 15:00] VITALS: RESP 18; TEMP 98.2
[2017-10-06 18:15] VITALS: BP 122/72; PULSE 109; RESP 20; TEMP 98
[2017-10-06 20:15] VITALS: BP 106/61; PULSE 94
[2017-10-06 20:17] VITALS: RESP 20; TEMP 98.2
[2017-10-06] MEDS: SODIUM CHLORIDE 0.9% FLUSH 10 ML FLUSH IV FLUSH SCH (21:00)
[2017-10-07] VITALS (14 sets, daily range): BP systolic 93–118; BP diastolic 51–69; PULSE 82–98; RESP 18–20; TEMP 97.2–98.9
[2017-10-07] MEDS: DOCUSATE SODIUM 100 MG CAP PO PRN ×3 (00:06→21:19)
[2017-10-07] MEDS ORDERED: MULTIVIT/MIN/PREN/FOL AC/IRON PRENATAL TAB PO SCH (09:00)
[2017-10-07] MEDS ORDERED: ACETAMINOPHEN 500 MG CPLT PO PRN (09:00)
--- NOTE | 2017-10-07 09:30 | PD.OB.ANTE ---
Subjective Diagnosis: (1) premature rupture of membranes (PPROM) with unknown onset of labor Diagnosis: Principal (2) Cervical insufficiency in , antepartum Diagnosis: Principal (3) Multigravida of advanced maternal age Diagnosis: Secondary Interval History Patient is less anxious today. She is still refusing antibiotic and steroid treatment as well as transfer to [facility]. She is refusing FHT. Antepartum ROS: Reports: New complaints (pt c/o dark brown spotting. She c/o a headache this morning. ), Loss of fluid (p/w LOF yesterday. Amnisure +), movement normal (she is feeling a little movement), Contractions (she had some CTX overnight), Denies: Vaginal bleeding Objective Vital Signs Vital Signs Date Time Temp Pulse Resp B/P (MAP) Pulse Ox O2 Delivery O2 Flow Rate FiO2 10/07/17 08:39 98.9 92 20 101/59 (73) 10/07/17 04:34 97.8 18 10/07/17 04:33 98 93/51 (65) 10/07/17 02:00 97.9 18 10/07/17 00:09 82 111/69 (83) 10/07/17 00:00 98.0 20 10/06/17 20:17 98.2 20 10/06/17 20:15 94 106/61 (76) 10/06/17 18:15 98.0 10/06/17 18:15 20 10/06/17 18:15 109 122/72 (89) 10/06/17 15:00 98.2 18 10/06/17 09:56 83 130/64 (86) Lab & Micro Results Test 10/06/17 12:00 White Blood Count 7.5 TH/MM3 Red Blood Count 3.62 MIL/MM3 Hemoglobin 10.2 GM/DL Hematocrit 30.4 % Mean Corpuscular Volume 83.9 FL Mean Corpuscular Hemoglobin 28.2 PG Mean Corpuscular Hemoglobin Concent 33.6 % Red Cell Distribution Width 14.8 % Platelet Count 219 TH/MM3 Mean Platelet Volume 9.9 FL Neutrophils (%) (Auto) 72.5 % Lymphocytes (%) (Auto) 19.7 % Monocytes (%) (Auto) 6.1 % Eosinophils (%) (Auto) 1.2 % Basophils (%) (Auto) 0.5 % Neutrophils # (Auto) 5.4 TH/MM3 Lymphocytes # (Auto) 1.5 TH/MM3 Monocytes # (Auto) 0.5 TH/MM3 Eosinophils # (Auto) 0.1 TH/MM3 Basophils # (Auto) 0.0 TH/MM3 CBC Comment DIFF FINAL Differential Comment Urine Color LIGHT-YELLOW Urine Turbidity CLEAR Urine pH 7.5 Urine Specific [place] 1.007 Urine Protein 30 mg/dL Urine Glucose (UA) NEG mg/dL Urine Ketones TRACE mg/dL Urine Occult Blood SMALL Urine Nitrite NEG Urine Bilirubin NEG Urine Urobilinogen LESS THAN 2.0 MG/DL Urine Leukocyte Esterase SMALL Urine RBC 2 /hpf Urine WBC 6 /hpf Urine Squamous Epithelial Cells 1 /hpf Urine Bacteria RARE /hpf Microscopic Urinalysis Comment CULT NOT INDICATED Urine Opiates Screen NEG Urine Barbiturates Screen NEG Urine Amphetamines Screen NEG Urine Benzodiazepines Screen NEG Urine Cocaine Screen NEG Urine Cannabinoids Screen POS Physical Exam GENERAL: Well-nourished, well-developed patient. CARDIOVASCULAR: Regular rate and rhythm without murmurs, gallops, or rubs. RESPIRATORY: Breath sounds equal bilaterally. No accessory muscle use. ABDOMEN/GI: Abdomen soft, non-tender. Fundus: c/w 23 week gestation GENITOURINARY: pt refused cervical exam Uterine Contractions: none FHT's: pt refused FHT's EXTREMITIES: No cyanosis or edema, non-tender, without signs of DVT. Assessment and Plan Problem List: (1) premature rupture of membranes (PPROM) with unknown onset of labor ICD Codes: O42.919 - premature rupture of membranes, unspecified as to length of time between rupture and onset of labor, unspecified trimester (2) Cervical insufficiency in , antepartum ICD Codes: O34.30 - Maternal care for cervical incompetence, unspecified trimester (3) Multigravida of advanced maternal age ICD Codes: O09.529 - Supervision of elderly multigravida, unspecified trimester Qualifiers: Qualified Codes: O09.522 - Supervision of elderly multigravida, second trimester Assessment and Plan Patient is a 37-year-old at 23 weeks and 0 days with a h/o AMA, 2 prior C- sections, who presented with PPROM (Amnisure +) after having a cerclage placed for 100% effacement last week. 1. PPROM - Patient is less anxious today. She is still refusing antibiotic and steroid treatment as well as transfer to [facility]. She is refusing T. -continue to monitor vitals and labor status/CTXs with tocometry -will continue to discuss plan of care with patient -current plan is watchful waiting with minimal intervention, per discussion with pt and pt's wishes -neonatology consult appreciated 2. headache -Tylenol 1g po q6h d/w Dr. Konrad Torres,Marko Serrato MD R2 Oct 07, 2017 09:30
[2017-10-07] MEDS: LORazepam 1 MG TAB PO PRN ×2 (10:17→21:19)
--- NOTE | 2017-10-07 12:34 | PD.OB.ANTE ---
Subjective Diagnosis: (1) premature rupture of membranes (PPROM) with unknown onset of labor (2) Cervical insufficiency in , antepartum (3) Multigravida of advanced maternal age Interval History 37-year-old 2 is 3 para 1112, IUP at 23 weeks and 1 day today. The patient was admitted yesterday for PPROM at 23 weeks and 0 days. She was seen by Dr. Shay and Dr. Silvestre yesterday and a neonatology consultation was performed with the recommendation for steroids for lung maturity , magnesium sulfate for neuro protection, and antibiotics to prolong the latency period. The patient refused any intervention and stated she wished she could just be delivered. At this time, she has no new complaints. I spent a lengthy amount of time in counseling the patient regarding the above on 2 occasions. I discussed the potential benefit of steroids to promote lung maturity. I also discussed antibiotics to prolong the latency period so she could potentially reach the age of viability and perhaps even a gestational age with significantly improved / outcomes. I also discussed the benefits of magnesium sulfate for neuro protection. The patient continues to refuse any interventions at this time. We discussed her cerclage and that if she does enter labor the cerclage would need to be removed. I also spoke at length with Dr. Ambrose, the perinatologist, who will see the patient in consultation in the morning. At that time a formal ultrasound will be performed to further assess weight and amniotic fluid. He discussed that If she desired to let nature take its course, one option would be to remove the cerclage. I did speak to the patient about this, however she did not request the cerclage to be removed today. I discussed with the patient that while we made these recommendations for hospital care, she will not be held in the hospital against her will and she is free to leave any time. She declines and states that she feels "safe" here and does not desire to leave. She did state that she would like to end the . At this time, I would not be comfortable proceeding with induction of labor this potentially viable/ periviable fetus in that manner without [facility] consultation and review by the hospital ethics committee. We will consult the hospital ethics committee after her [facility] consultation tomorrow. She also declines transfer at this time to a tertiary care center with level I NICU. Greater than 45 minutes total time was spent today with patient in counseling and care coordination, over 50% face-to- face counseling regarding the above. Objective Vital Signs Vital Signs Date Time Temp Pulse Resp B/P (MAP) Pulse Ox O2 Delivery O2 Flow Rate FiO2 10/07/17 08:39 98.9 92 20 101/59 (73) 10/07/17 04:34 97.8 18 10/07/17 04:33 98 93/51 (65) 10/07/17 02:00 97.9 18 10/07/17 00:09 82 111/69 (83) 10/07/17 00:00 98.0 20 10/06/17 20:17 98.2 20 10/06/17 20:15 94 106/61 (76) 10/06/17 18:15 98.0 10/06/17 18:15 20 10/06/17 18:15 109 122/72 (89) 10/06/17 15:00 98.2 18 Physical Exam GENERAL: Well-nourished, well-developed patient. CARDIOVASCULAR: Regular rate and rhythm without murmurs, gallops, or rubs. RESPIRATORY: Breath sounds equal bilaterally. No accessory muscle use. ABDOMEN/GI: Abdomen soft, non-tender. Fundus: [-] GENITOURINARY: External Genitalia: intact and normal in appearance Cervix: [-] Dilatation: [-] Effacement: [-] Station: [-] Presentation: [-] Membranes: [-] Uterine Contractions: [-] FHT's: Category: [-] Baseline: [-] Reactive: [-] Variability: [-] Decels: [-] EXTREMITIES: No cyanosis or edema, non-tender, without signs of DVT. Assessment and Plan Problem List: (1) premature rupture of membranes (PPROM) with unknown onset of labor ICD Codes: O42.919 - premature rupture of membranes, unspecified as to length of time between rupture and onset of labor, unspecified trimester (2) Cervical insufficiency in , antepartum ICD Codes: O34.30 - Maternal care for cervical incompetence, unspecified trimester (3) Multigravida of advanced maternal age ICD Codes: O09.529 - Supervision of elderly multigravida, unspecified trimester Qualifiers: Qualified Codes: O09.522 - Supervision of elderly multigravida, second trimester Assessment and Plan Patient is a 37-year-old at 23 weeks and 0 days with a h/o AMA, 2 prior C- sections, who presented with PPROM (Amnisure +) after having a cerclage placed for 100% effacement last week. 1. PPROM - Patient is less anxious today. She is still refusing antibiotic and steroid treatment as well as transfer to [facility]. She is refusing FHT. -continue to monitor vitals and labor status/CTXs with tocometry -will continue to discuss plan of care with patient -current plan is watchful waiting with minimal intervention, per discussion with pt and pt's wishes -neonatology consult appreciated 2. headache -Tylenol 1g po q6h d/w Dr. Konrad Shaffer,Luz Marina Aj MD Oct 07, 2017 12:33
[2017-10-07] MEDS: SODIUM CHLORIDE 0.9% FLUSH 10 ML FLUSH IV FLUSH SCH ×2 (16:07→21:19)
[2017-10-07] MEDS: ALUMINUM/MAGNESIUM/SIMETH 30 ML CUP PO PRN (21:25)
[2017-10-08] VITALS (32 sets, daily range): BP systolic 94–139; BP diastolic 52–73; PULSE 85–107; RESP 18; TEMP 97.4–98
[2017-10-08] MEDS: ALUMINUM/MAGNESIUM/SIMETH 30 ML CUP PO PRN (03:30)
[2017-10-08] MEDS: LORazepam 1 MG TAB PO PRN (04:05)
[2017-10-08] MEDS ORDERED: MAGNESIUM SULFATE 40 GM PREMIX 1,000 ML IV SCH (11:30)
[2017-10-08] MEDS ORDERED: MAGNESIUM SULFATE 4 GM PREMIX 100 ML IV ONE (11:30)
--- NOTE | 2017-10-08 11:39 | MB ---
cc: PORFIRIO MCADAMS M.D. DATE OF CONSULTATION 10/08/[address] Silvestre HISTORY This is the case of a 37 year-old black female 4 para 1-1-1-2 at 23-2/7th weeks gestation by dates and ultrasound. The patient was admitted to [facility] yesterday morning with complaints of rupture of membranes. The patient had had a cerclage placed due to a presumed incompetent cervix on September 25 and was on bedrest at the time that she had spontaneous rupture of membranes. The patient denied any vaginal bleeding, history of abdominal trauma, intercourse or any other symptoms. Denies any fever, chills or abdominal cramping. The patient had been receiving exam in the clinic with Dr. Patrick who placed the cerclage after an ultrasound showed a completely effaced cervix with membranes at the external os. PAST MEDICAL HISTORY Negative for any major medical problems. OBSTETRICAL HISTORY Significant for two sections in 2005 at 36 weeks and 2006 at 38 weeks. In 2015 had a spontaneous miscarriage without a D&C. PAST SURGICAL HISTORY Significant for two sections. ALLERGIES No known drug allergies, however, the patient states that she has some weird side effects with narcotics. FAMILY HISTORY Negative for genetic diseases or hereditary disorders, however, the patient states her brother suffers from autism and mental retardation. SOCIAL HISTORY The patient is , lives at home. No history of alcohol use. Occasional use of cigarettes about one per day and states that she used marijuana in the beginning of the . REVIEW OF SYSTEMS On a 10-point evaluation, is completely negative except for genitourinary leakage of fluid per vagina. PHYSICAL EXAM Blood pressure 120/70, heart rate 82, respiratory rate 18, afebrile. GENERAL: This is a well-nourished and well-developed female alert and oriented times three in no acute distress. HEAD, EYES, EARS, NOSE, AND THROAT: Normocephalic. Eyes PERRLA, adequate EOM. NECK: Supple. No thyromegaly. LUNGS: Clear to auscultation. HEART: Normal sinus rhythm with a 1/6 systolic ejection murmur at the left sternal border. ABDOMEN: Gravid and nontender. heart tones present category one. PELVIC: Deferred. EXTREMITIES: No edema. Deep tendon reflexes are within normal limits. Ultrasound examination shows a single fetus measurements consistent with dates. Estimated weight 580 grams. Amniotic fluid consistent with oligohydramnios with a single pocket of 1.3 cm. IMPRESSION 1. Intrauterine at 23-2/7th weeks with a 580 gram fetus. 2. Premature rupture of membranes. 3. Status post cerclage placement. RECOMMENDATIONS 1. Continue inpatient management. 2. Consider transfer of care to a tertiary care facility at 24 weeks. NOTE I have had a lengthy conversation with the patient regarding the findings of premature rupture of membranes at this gestational age. The patient had an extensive consultation with neonatology who quoted approximately 12-15% intact survival if the baby was born around this gestation. I explained to her and discussed with her the controversies regarding removal versus leaving cerclage in place and the fact that most currently the picture suggests that leaving it at this time may improve the likelihood of prolongation of without increasing the likelihood of chorioamnionitis. However, the patient was also made aware that should she go into labor and cerclage is not removed promptly or baby delivered, there could be significant problems such as cervical tears and bleeding. Also discussed with the patient that if she elects to remove the cerclage, which she is in her within her rights to do so, this may cause her to go into labor and have the baby at this time. I discussed with the patient the viability and type of management utilized at this gestation including the use of magnesium for neuroprotection, antibiotics for management of infection and steroids for lung maturation enhancement. I strongly recommended to the patient that this protocol be instituted at 24-weeks especially if her intent was to continue with the . The patient was allowed to ask some questions which were answered to her satisfaction and the case was also discussed with Dr. Lizama. MD BEVERLY Turcios/MANUELITO /10:58 AM /11:20 AM
[2017-10-08] MEDS ORDERED: BETAMETHASONE SOD PHOS/ACETATE SUSP 30 MG/5 ML VIAL IM SCH (12:00)
[2017-10-08] MEDS ORDERED: GENTAMICIN 80 MG PREMIX 100 ML IV SCH (13:00)
[2017-10-08] MEDS ORDERED: AMPICILLIN 500 MG VIAL IV PUSH SCH (14:00)
[2017-10-08] MEDS: SODIUM CHLORIDE 0.9% FLUSH 10 ML FLUSH IV FLUSH SCH (17:16)
== END 2017-10-08 21:33 | disposition short-term general hospital (02) | DRG 775 ==
LOC: HOBED 09:17 → H2EA 14:07
PROVIDERS: ADMIT Obstetrics & Gynecology Maternal & Fetal Medicine; ATTEND Obstetrics & Gynecology Maternal & Fetal Medicine
DX: O42.912 Preterm premature rupture of membranes, unspecified as to length of time between rupture and onset of labor, second trimester (principal); O34.32 Maternal care for cervical incompetence, second trimester; O99.324 Drug use complicating childbirth; O34.219 Maternal care for unspecified type scar from previous cesarean delivery; O99.344 Other mental disorders complicating childbirth; F41.9 Anxiety disorder, unspecified; O09.522 Supervision of elderly multigravida, second trimester; R51 Headache; F32.9 Major depressive disorder, single episode, unspecified; Z3A.23 23 weeks gestation of pregnancy; Z87.891 Personal history of nicotine dependence; Z88.5 Allergy status to narcotic agent; Z88.6 Allergy status to analgesic agent
CPT/HCPCS: 59025; 76816; 80307; 81001; 84112; 85025; 86850; 86900; 86901; J0290; J0702; J1580; J2590; J3475

== ENCOUNTER → 2017-12-12 | Day surgery (SDC) | payer OTHER ==
--- NOTE | 2017-12-11 13:07 | MH ---
cc: ANTONIO MARISCAL MD, JESSE S. MD DATE OF ADMISSION: 12/12/2017 1980 REASON FOR ADMISSION Scheduled for admission on 12/12/2017 for laparoscopic sterilization. HISTORY OF PRESENT ILLNESS The patient is a 37-year-old black female, 4, para 3, has had three C-sections, completed childbearing and wants to proceed with surgical sterilization. PAST MEDICAL HISTORY The patient's medical history is negative for heart, lung, liver disease, hypertension, diabetes, stroke. PAST SURGICAL HISTORY x3 with cerclage. OBSTETRICAL HISTORY Three C-sections with incompetent cervix noted requiring cerclage. GYNECOLOGIC HISTORY No STDs or abnormal Pap smears. Last period was 3 weeks ago. MEDICATIONS Celexa 20 mg daily. ALLERGIES CODEINE, HYDROCODONE, OXYCODONE. SOCIAL HISTORY , has good social support. No alcohol, tobacco, caffeine. FAMILY HISTORY Noncontributory. REVIEW OF SYSTEMS The review of systems as above. No chest pain, orthopnea, PND. No nausea, vomiting, fever, chills. No vaginal bleeding or discharge. No change in bladder or bowel habits. PHYSICAL EXAMINATION VITAL SIGNS: She is afebrile. Vital signs stable. Blood pressure is 120/70, height is 5 feet 7 inches, weight 160, BMI is 24.9. GENERAL: Patient is alert and oriented, in no acute distress. No sign of cognitive dysfunction or depression. HEENT: Within normal limits. NECK: Supple. No JVD. CHEST: Clear. HEART: Regular rate and rhythm. ABDOMEN: Soft, nontender. No hepatosplenomegaly. No CVA tenderness. PELVIC: Pelvic exam will be detailed under anesthesia. EXTREMITIES: Normal skin without rashes. NEURO: Nonfocal. No DVT signs. ASSESSMENT Patient with multiparity, desires sterilization. The patient has history of prior x3 and incompetent cervix. She has no HECTOR exposure but she could have significant issues with scarring. We may consider left upper quadrant approach, will make that decision after the exam under anesthesia. The patient is aware of the risks, benefits, alternatives to the planned procedure including damage to surrounding organs, bleeding, infection, infertility, also possibility that she could still become in the future but the procedure is designed to be permanent and irreversible. At this point anticipate outpatient procedure. Will use DVT prophylaxis with sequential compression device and antibiotic prophylaxis with Ancef 2 grams. MD LALA Pagan/MARIANNA /12:07 PM /12:47 PM
[~2017-12-12] VITALS: Ht 170.2 cm; Wt 75.5 kg
[~2017-12-12] MED LIST changes: +*MEPERIDINE 25 MG INJ VIAL PERIprocedural Use ONLY ONE; +ACETAMINOPHEN 1000 MG/100 ML 100 ML IV ONE; +APREPITANT 40 MG CAP ONE; +CHLORHEXIDINE GLUCONATE 2 % 1 PACK (2 CLOTHS) TOPICAL PRN; -CITA10TA4 PO; +DEXAMETHASONE SOD PHOS 4 MG/ML VIAL IV ONE; +DO NOT ADM ANY ANTICOAGULANT DRUGS PRN; +FAMOTIDINE 20 MG/2 ML VIAL ONE; +FERR325T18 PO; +GLYCOPYRROLATE 1 MG/5 ML SYRINGE IV PUSH ONE; +KETOROLAC TROMETHAMINE 30 MG/ML (IVP) VIAL IV PUSH ONE; +KETOROLAC TROMETHAMINE 30 MG/ML (IVP) VIAL IV PUSH PRN; +KETOROLAC TROMETHAMINE 30 MG/ML (IVP) VIAL ONE; +LACTATED RINGER'S 1000 ML INJ 1,000 ML IV ONE; +LACTATED RINGER'S 1000 ML IV PRN; +LIDOCAINE 0.5%/EPINEPHrine 1:200,000 SOLN 50 ML VIAL ONE; +LIDOCAINE HCL 1% PF 5 ML SYRINGE OTHER ONE; +METOPROLOL TARTRATE 25 MG TAB PO PRN; +MIDAZOLAM HCL 2 MG/2 ML VIAL ONE; +NEOSTIGMINE 5 MG/5 ML SYRINGE IV PUSH ONE; +ONDANSETRON HCL 4 MG/2 ML VIAL IV PUSH ONE; +ONDANSETRON HCL 4 MG/2 ML VIAL IV PUSH PRN; +POVIDONE IODINE 5% (ANTISEPSIS KIT) 4 APPLICATIONS EACH NARE PRN; -PREN1CAP7 PO; +PROPOFOL 200 MG/20 ML AMP IV ONE; +ROCURONIUM INJ 50 MG/5 ML SYRINGE IV PUSH ONE; +SODIUM CHLORID 0.9% 500 ML IV PRN; +SUCCINYLCHOLINE CHLORIDE 100 MG/5 ML SYRINGE IV PUSH ONE; +ceFAZolin 2 GM PREMIX 50 ML IV SCH; +traMADol HCL 50 MG TAB PO PRN
[2017-12-12 10:57] VITALS: BP 108/71; PULSE 70; RESP 16; TEMP 96.7; O2SAT 100
--- NOTE | 2017-12-13 19:00 | MP ---
cc: ANTONIO MARISCAL MD, JESSE S. MD DATE OF SURGERY: 12/12/17 PREOPERATIVE DIAGNOSES Multiparity. desires sterilization. POSTOPERATIVE DIAGNOSES Multiparity. desires sterilization with adhesions of the bowel to the left pelvic sidewall. PROCEDURE 1. Right salpingectomy 2. Partial left salpingectomy 3. Fulguration of proximal tube segments. 4. Lysis of adhesions. SURGEON Kirk Mariscal MD ANESTHESIA endotracheal with OG tube SANDBLAST CARVER [place] staff x1 FLUIDS Crystalloid BLOOD LOSS 5 mL URINE OUTPUT 200 mL clear FINDINGS External genitalia normal. Pop Q score Aa is -2, Ap is -2, point C is -8, total vaginal length is 10. General hiatus is six. Perineal body is five. Uterus is retroverted, normal size, mobile. Adhesions of the bowel, the sigmoid and small intestine to the uterine fundus and the left pelvic sidewall. Ovaries normal. Appendix normal. Upper abdomen unremarkable. SPECIMENS Right tube. Partial left tube COMPLICATIONS None DISPOSITION To recovery room stable. Needle and sponge count correct. DRAINS Peralta catheter PROPHYLAXIS antibiotic prophylaxis Ancef 2 grams, DVT prophylaxis sequential compression device. Time-out procedure and identification per protocol SUMMARY OF INDICATION AND PROCEDURE The patient with multiparity desires sterilization, prior x3, history of incompetent cervix. The patient was taken to the operating theater, prepped and draped in fashion appropriate for planned procedure. She was in dorsal lithotomy position with careful attention paid to placement of legs in stirrups to avoid undue stress to sensitive neurovascular structures. Above findings noted. Neurovascular integrity documented. Peralat catheter was placed. Umbilicus infiltrated with epinephrine lidocaine solution. Small incision was made and a 5-mm scope was placed under direct visualization. Above findings noted. Auxiliary trocars were placed 5 mm in left lower quadrant, 8 mm suprapubically. Above findings noted with adhesions. These adhesions were taken down. There were relatively nonvascular, but we take them down with Harmonic energy. We mobilized the bowel from the pelvis, right tube was relatively free and mobile. This was removed with standard salpingectomy technique using Harmonic energy. On the left side, his tube was more convoluted and adhesed. We used Harmonic energy to free up the distal end of the tube and removed approximate one half of the left tube. Remainder of the tube segment was fulgurated with bipolar energy using an amp meter to assure cessation of electron flow. We made sure the bowel, ureters and vital structures were clear of the operative field. Pelvis was inspected, all areas were hemostatic with and without gas pressure. We placed hemostatic powder for added reassurance. Systematic inspection of the pelvis and abdomen were documented. The procedure was concluded. The incisions were closed with 4-0 Monocryl and Dermabond. The patient tolerated procedure well, went to recovery in stable condition. MD LALA Pagan/ /9:04 AM /6:41 PM
== END | disposition home or self-care (01) ==
LOC: HSDC 06:03
PROVIDERS: ATTEND Obstetrics & Gynecology Gynecology
DX: Z30.2 Encounter for sterilization (principal)
CPT/HCPCS: 00851; 58670; 88302; J0131; J0330; J0690; J1100; J1885; J2175; J2250; J2405; J2710; J3010; J7120; J8501